=== PATIENT | female | born 1950 | race Caucasian/White ===

== ENCOUNTER 2019-02-11 05:37 | Day surgery (SDC) | payer OTHER, BC ==
[~2019-02-11] VITALS: Ht 175.3 cm; Wt 122.9 kg
[~2019-02-11 05:37] MED LIST: ATORVASTATIN CA40 MG PO; CENTRUM SILVER1 EAC4 PO; CRANBERRY500 M3 PO; DULERA 100 MCG/13 GM INH; FLUTICASONE PRO16 GM NASAL; GLUCOPHAGE XR500 MG PO; HYDROCHLOROTHIA25 M2 PO; POTASSIUM CHLO10 MEQ PO; PREMARIN30 GM VAG; PROTONIX40 M1 PO; ROBITUSSIN100 MG/53 PO; SINGULAIR 10 MG10 M1 PO; VENTOLIN HFA 1818 GM INH
[2019-02-11 06:55] LABS: CALCIUM 9.5 mg/dL (8.5-10.1); CREATININE 0.7 mg/dL (0.6-1.0); POTASSIUM 3.2 mmol/L (3.5-5.1)
[2019-02-11 07:00] VITALS: BP 139/62
--- NOTE | 2019-02-11 08:06 | H ---
[facility] [place] [address] HISTORY AND PHYSICAL Name: ALEJANDRA AQUINO Room #: 150-6 [facility]#: [id number] Admission: 02/11/19 ������������������ Attend Phys: Fausto Haider MD Discharge: ������������������ Date of : 54 Report #: [id number] THIS REPORT FOR: //name// CC: FAM unknown Fausto Haider Her procedure is scheduled for 02/11/2019. HISTORY OF PRESENT ILLNESS: The patient has nasal polyps and chronic sinusitis. She underwent sinus surgery a little over 2 years ago. She intermittently does well, but has had to be on steroids several times because of recurrence of polyps. A most recent CT scan shows good openings into the maxillary sinuses, mild mucous membrane thickening in the maxillary sinuses with almost complete opacification of the ethmoid sinuses, frontal sinuses and sphenoid sinuses. PAST MEDICAL HISTORY: Otherwise, significant for diabetes and high blood pressure. MEDICATIONS: Include HCTZ, potassium, atorvastatin, metformin, Prilosec. ALLERGIES: SHE IS ALLERGIC TO CODEINE. PHYSICAL EXAMINATION: She had polyps in the middle meatus on both sides, but a reasonable nasal airway. 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 PLAN: Endoscopic revision, bilateral maxillary antrostomies, complete ethmoidectomies, frontal duct explorations and sphenoidotomies with image-guided surgery. ��������������������������������������������� <ELECTRONICALLY SIGNED> ���������������������������������������� By: Fausto Haider MD ��������������������������������������������� 02/11/19 0806 [id number] [id number] Fausto Haider MD /edgar
--- NOTE | 2019-02-11 08:17 | EKG ---
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 : 1950 Requested By: Fausto Haider Order Number: [id number] : Marco Lynn Measurements Intervals [place] Rate: 72 P: 30 [place]: 143 QRS: 1 QRSD: 103 T: 72 QT: 398 QTc: 436 Interpretive Statements Sinus rhythm Abnormal R-wave progression, early transition Minimal ST depression, lateral leads No previous ECG available for comparison Electronically Signed On 02-11-2019 8:17:40 CDT by Marco Lynn [email or web address] ��������������������������������������������� <ELECTRONICALLY SIGNED> ���������������������������������������� By: Marco Lynn MD ��������������������������������������������� 02/11/19 0817 7 7 Marco Lynn MD /LUIS ANTONIO
[2019-02-11 10:35] VITALS: BP 139/62
--- NOTE | 2019-02-11 19:30 | O ---
[facility] [place] [address] OPERATIVE REPORT Name: ALEJANDRA AQUINO Room #: DEP [facility].#: [id number] Admission: 02/11/19 ������������������ Attend Phys: Fausto Haider MD Discharge: 02/11/19 ������������������ Date of : 54 Report #: [id number] THIS REPORT FOR: //name// CC: Lyn Haider DATE OF SERVICE: 02/11/2019 PREOPERATIVE DIAGNOSES: Chronic pansinusitis with nasal and sinus polyposis. POSTOPERATIVE DIAGNOSES: Chronic pansinusitis with nasal and sinus polyposis. OPERATIVE PROCEDURE: Endoscopic bilateral revision maxillary antrostomies with removal of polyps, bilateral complete ethmoidectomies, bilateral frontal duct explorations, bilateral sphenoidotomies with removal of polyps. Image guidance surgery. ANESTHESIA: General by laryngeal mask. DESCRIPTION OF PROCEDURE: The patient was taken to the operating room and placed in supine position. General anesthesia was induced by laryngeal mask. Once adequate general anesthesia was obtained, local nasal anesthesia was induced by submucoperiosteal injection of 1% lidocaine with 1:100,000 epinephrine and topical application of cocaine solution. The patient was then draped in a sterile manner. The patient was also calibrated to the image guidance system for image guidance surgery throughout the procedure. The nasal endoscope was used to visualize the left nasal cavity. There were polyps in the middle meatus, but reasonable openings into the maxillary sinus. There were some polyps anteriorly at the area of the natural opening. These were removed using the microdebrider. The anterior ethmoid air cells were open, but the posterior ethmoid air cells had some polyps with mucous membrane thickening. The basal lamella was opened widely into the posterior ethmoid air cells and several air cells that had not been opened previously were opened, and there was actually polyps and some thick brown mucus consistent with allergic fungal sinusitis. Polyps were removed from the sphenoethmoid recess. The sphenoid opening was located and was enlarged with the microdebrider, and thick brown mucus was removed from the sphenoid sinus as well. I used an angled scope and a curved blade to remove polyps anteriorly and then followed up along the root of the uncinate process into the frontal sinus. Polyps were removed from the frontal duct, and a curved suction was placed up into the sinus itself. FloSeal was placed into the ethmoid cavity and middle meatus for hemostasis. The exact same procedure was performed on the right side. FloSeal was placed on the right side as well. The patient tolerated the procedure well. Blood loss [facility] [address] [place] [address] OPERATIVE REPORT Name: ALEJANDRA AQUINO Room #: DEP [facility]#: [id number] Admission: 02/11/19 ������������������ Attend Phys: Fausto Haider MD Discharge: 02/11/19 ������������������ Date of : 54 Report #: [id number] approximately 200 mL. The patient was then awoken and taken to the recovery room in stable condition for postoperative monitoring ��������������������������������������������� <ELECTRONICALLY SIGNED> ���������������������������������������� By: Fausto Haider MD ��������������������������������������������� 02/11/19 1930 0954 1010 Fausto Haider MD /nt
== END 2019-02-11 11:25 | disposition home or self-care (01) ==
LOC: OR 05:37 → TBA 05:37 → OR 10:19
PROVIDERS: Otolaryngology
DX: J32.4 Chronic pansinusitis (principal); J33.8 Other polyp of sinus; J33.9 Nasal polyp, unspecified; I10 Essential (primary) hypertension; E11.9 Type 2 diabetes mellitus without complications; J45.909 Unspecified asthma, uncomplicated; E78.5 Hyperlipidemia, unspecified; K21.9 Gastro-esophageal reflux disease without esophagitis; Z96.653 Presence of artificial knee joint, bilateral; Z79.899 Other long term (current) drug therapy; Z88.6 Allergy status to analgesic agent; Z98.890 Other specified postprocedural states
CPT/HCPCS: 50010; 50101; 50286; 50386; 50398; 50573; 51751; 52290; 52291; 62110; 62900; 70005